=== PATIENT | male | born 1970 | race Caucasian/White ===

== ENCOUNTER → 2022-05-31 12:19 | Outpatient (BNVA) | payer MEDICARE, SELFPAY | PROVIDERS: Family Provider Nurse Practitioner; PCP Nurse Practitioner; Visit Provider Nurse Practitioner | DX: R06.02 Shortness of breath (principal); R10.9 Unspecified abdominal pain; R06.00 Dyspnea, unspecified | CPT/HCPCS: 85025; 87400 ==